=== PATIENT | male | born 1935 | race Caucasian/White ===

== ENCOUNTER 2020-12-21 11:45 | Inpatient (IN) | payer MEDICARE ==
[~2020-12-21] VITALS: Ht 180.3 cm; Wt 66.3 kg
[2020-12-21] MEDS ORDERED: ASPIRIN CHEWABL81 MG PO (21:17)
[2020-12-21] MEDS ORDERED: NITRO-DUR1 EAC5 TD (21:18)
[2020-12-21] MEDS ORDERED: COREG3.125 MG PO (21:18)
[2020-12-21] MEDS ORDERED: SEROQUEL100 MG PO (21:19)
[2020-12-21] MEDS ORDERED: PROZAC20 MG PO (21:19)
[2020-12-21 23:55] LABS: HEMOGLOBIN 13.2 gm/dl (14.0-17.5); RED BLOOD COUNT 4.13 M/UL (4.20-5.50); WHITE BLOOD COUNT 10.7 K/UL (4.5-11.0)
[2020-12-23 02:55] LABS: HEMOGLOBIN 12.2 gm/dl (14.0-17.5); RED BLOOD COUNT 3.85 M/UL (4.20-5.50)
[2020-12-24 04:11] LABS: HEMOGLOBIN 12.5 gm/dl (14.0-17.5); RED BLOOD COUNT 3.89 M/UL (4.20-5.50)
[2020-12-24 04:13] LABS: WHITE BLOOD COUNT 10.9 K/UL (4.5-11.0)
--- NOTE | 2020-12-24 17:24 | NUR ---
received call from telemetry patient's pulse ox on 70's, informed patient was eating with no signs of respiratory insufficiency. after patient finished her dinner patient back to bipap and telemetry informed of pulse ox 91.
[2020-12-25 04:27] LABS: HEMOGLOBIN 11.9 gm/dl (14.0-17.5); RED BLOOD COUNT 3.74 M/UL (4.20-5.50); WHITE BLOOD COUNT 9.1 K/UL (4.5-11.0)
[2020-12-25] MEDS ORDERED: ELIQUIS 2.5 MG2.5 MG PO (13:34)
[2020-12-26 03:44] LABS: HEMOGLOBIN 10.8 gm/dl (14.0-17.5); RED BLOOD COUNT 3.45 M/UL (4.20-5.50)
[2020-12-27 03:23] LABS: HEMOGLOBIN 10.4 gm/dl (14.0-17.5); RED BLOOD COUNT 3.27 M/UL (4.20-5.50); WHITE BLOOD COUNT 7.7 K/UL (4.5-11.0)
[2020-12-28 02:54] LABS: HEMOGLOBIN 10.9 gm/dl (14.0-17.5); RED BLOOD COUNT 3.4 M/UL (4.20-5.50)
[2020-12-29 03:12] LABS: RED BLOOD COUNT 3.4 M/UL (4.20-5.50); WHITE BLOOD COUNT 6.2 K/UL (4.5-11.0)
[2020-12-30 05:53] LABS: HEMOGLOBIN 11.4 gm/dl (14.0-17.5); RED BLOOD COUNT 3.68 M/UL (4.20-5.50); WHITE BLOOD COUNT 7.2 K/UL (4.5-11.0)
== END 2020-12-30 17:16 | disposition home health service (06) | DRG 481 ==
LOC: M/S 21:33
PROVIDERS: Internal Medicine; Orthopaedic Surgery; ADMIT Internal Medicine
PROC: 0QS704Z Reposition Left Upper Femur with Internal Fixation Device, Open Approach (ICD-10-PCS; principal; 2020-12-22 13:43)
DX: S72.002A Fracture of unspecified part of neck of left femur, initial encounter for closed fracture (principal); N17.9 Acute kidney failure, unspecified; W01.10XA Fall on same level from slipping, tripping and stumbling with subsequent striking against unspecified object, initial encounter; Y92.009 Unspecified place in unspecified non-institutional (private) residence as the place of occurrence of the external cause; I25.10 Atherosclerotic heart disease of native coronary artery without angina pectoris; I10 Essential (primary) hypertension; I12.9 Hypertensive chronic kidney disease with stage 1 through stage 4 chronic kidney disease, or unspecified chronic kidney disease; Z20.822 Contact with and (suspected) exposure to COVID-19; F03.90 Unspecified dementia, unspecified severity, without behavioral disturbance, psychotic disturbance, mood disturbance, and anxiety; N18.30 Chronic kidney disease, stage 3 unspecified; H91.90 Unspecified hearing loss, unspecified ear; Z95.1 Presence of aortocoronary bypass graft; Z85.51 Personal history of malignant neoplasm of bladder; Z87.442 Personal history of urinary calculi; Z90.49 Acquired absence of other specified parts of digestive tract; Z88.2 Allergy status to sulfonamides; Z88.8 Allergy status to other drugs, medicaments and biological substances; Z79.899 Other long term (current) drug therapy; Z79.82 Long term (current) use of aspirin; Z85.828 Personal history of other malignant neoplasm of skin; R53.81 Other malaise
CPT/HCPCS: 36415; 71045; 73502; 76000; 80048; 80053; 81001; 85025; 85610; 85730; 93005; 94760; 97110; 97110-GP-CQ; 97116; 97116-GP-CQ; 97161; 97166; 97530; 97530-GP-CQ; 97535; J0171; J0690; J1100; J2001; J2270; J2405; J2704; J2795; J3010; J7030; J7120; U0002

== ENCOUNTER → 2022-02-15 | Outpatient (CLI) | payer MEDICARE ==
[~2022-02-15] MED LIST: ASPIRIN CHEWABL81 MG PO; COREG3.125 MG PO; ELIQUIS 2.5 MG2.5 MG PO; NITRO-DUR1 EAC5 TD; PROZAC20 MG PO; SEROQUEL100 MG PO
== END ==
LOC: WCC 07:23
DX: L89.622 Pressure ulcer of left heel, stage 2 (principal); L89.619 Pressure ulcer of right heel, unspecified stage; F02.80 Dementia in other diseases classified elsewhere, unspecified severity, without behavioral disturbance, psychotic disturbance, mood disturbance, and anxiety; I25.10 Atherosclerotic heart disease of native coronary artery without angina pectoris; M62.81 Muscle weakness (generalized); I25.2 Old myocardial infarction; N18.6 End stage renal disease; Z85.51 Personal history of malignant neoplasm of bladder; Z90.6 Acquired absence of other parts of urinary tract; Z88.2 Allergy status to sulfonamides; Z87.891 Personal history of nicotine dependence

== ENCOUNTER → 2022-02-21 | Outpatient (CLI) | payer MEDICARE | LOC: WCC 07:23 | DX: L89.622 Pressure ulcer of left heel, stage 2 (principal); L89.610 Pressure ulcer of right heel, unstageable; F02.80 Dementia in other diseases classified elsewhere, unspecified severity, without behavioral disturbance, psychotic disturbance, mood disturbance, and anxiety; I25.10 Atherosclerotic heart disease of native coronary artery without angina pectoris; M62.81 Muscle weakness (generalized); Z85.51 Personal history of malignant neoplasm of bladder; Z90.6 Acquired absence of other parts of urinary tract ==